=== PATIENT | female | born 1945 | race Caucasian/White ===

== ENCOUNTER → 2017-02-13 | Outpatient (CLI) | payer OTHER ==
[~2017-02-13] MED LIST: ESCI1TAB10 PO; METO50TA7 PO; RANI150T3 PO; RIVA1TAB4 PO; SIMV40TA2 PO
[2017-02-13 14:06] LABS: CHOLESTEROL/HDL RATIO 1.8
== END | disposition home or self-care (01) ==
LOC: C.LABMFLN 08:45
PROVIDERS: ATTEND Internal Medicine Cardiovascular Disease
DX: E78.00 Pure hypercholesterolemia, unspecified (principal); I10 Essential (primary) hypertension

== ENCOUNTER 2017-02-27 09:11 | Emergency (ER) | payer OTHER ==
[~2017-02-27] VITALS: Ht 157.5 cm; Wt 69.4 kg
[2017-02-27 09:13] VITALS: TEMP 36.7; Ht 157.5 cm; Wt 69.4 kg
[2017-02-27] MEDS ORDERED: METOPROLOL TARTRATE 50 MG TAB PO STA (09:21)
[2017-02-27 09:29] VITALS: O2SAT 96
[2017-02-27] MEDS ORDERED: LISINOPRIL 5 MG TAB PO ONE (09:30)
--- NOTE | 2017-02-27 09:31 | EMERGENCY ROOM VISIT NOTE ---
History Report prepared by Monica: Yordan Doherty Under the Supervision of: Dr. Alvaro Rider D.O. First contact with patient: 09:17 Stated Complaint: CARDIAC ASSESSMENT History of Present Illness The patient is a 71 year old female who presents to the Emergency Room with complaints of intermittent chest pains that she has been experiencing over the past 3 nights. The patient states that the chest pain began this morning at 0300 and persisted until 0600 when she got out of bed. She notes that standing up seems to relieve her pain when it occurs, and it always onsets while she is laying down. She denies any shortness of breath. The patient notes that she was running with her dog yesterday, and did not experience any discomfort during this exertion. She does note one bout of nausea recently, but denies any vomiting episodes or abdominal pain. She also denies any extremity swelling. The patient visited with her primary care physician who suggested that she come to the emergency department for a cardiac evaluation. She has had a stress test in the past. She has a history of heart murmur and hypertension. She takes Metoprolol and Lisinopril daily, she did not take these medications yet this morning. 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 A total of 10 systems reviewed and were otherwise negative. Past Medical & Surgical Medical Problems: (1) Heart murmur (2) Hypertension Heart murmur Hypertension Family History Hypertension Social History Drug Use: none Marital Status: Housing Status: lives with significant other Current/Historical Medications Scheduled Escitalopram Oxalate (Lexapro), 20 MG PO DAILY Metoprolol Succ (Toprol Xl) (Toprol-Xl), 50 MG PO BID Ranitidine Hcl (Zantac), 150 MG PO BID Rivaroxaban (Xarelto), 20 MG PO DAILY Simvastatin (Zocor), 40 MG PO QPM Allergies Coded Allergies: No Known Allergies (Unverified , 02/27/17) Physical Exam Vital Signs Date Time Temp Pulse Resp B/P Pulse Ox O2 Delivery O2 Flow Rate FiO2 02/27/17 11:40 54 20 188/73 97 Room Air 02/27/17 10:47 56 24 214/66 96 Room Air 02/27/17 09:33 56 02/27/17 09:29 96 Room Air 02/27/17 09:13 96 Room Air 02/27/17 09:13 36.7 59 16 228/60 96 Room Air 02/27/17 09:13 96 Room Air Physical Exam GENERAL: Patient is awake, alert, and in no acute distress. Patient is resting comfortably and showing no signs of anxiety EYES: The conjunctivae are clear. The pupils are round and reactive. EARS, NOSE, MOUTH AND THROAT: The nose is without any evidence of any deformity. Mucous membranes are moist tongue is midline NECK: The neck is nontender and supple. RESPIRATORY: Normal respiratory effort is noted there is no evidence of wheezing rhonchi or rales CARDIOVASCULAR: Systolic Murmur noted to auscultation. Regular rate and rhythm noted there no rubs or gallops normal S1 normal S2 GASTROINTESTINAL: The abdomen is soft. Bowel sounds are present in all quadrants. Abdomen is nontender MUSCULOSKELETAL/EXTREMITIES: There is no evidence of gross deformity full range of motion is noted in the hips and shoulders SKIN: There is no obvious evidence of any rash. There are no petechiae, pallor or cyanosis noted. NEUROLOGIC: Patient is awake alert and oriented x3 Medical Decision & Procedures ER Provider Diagnostic Interpretation: Radiology results as stated below per my review and radiologist interpretation: CHEST ONE VIEW PORTABLE HISTORY: Atypical CHEST PAIN COMPARISON: None. FINDINGS: The lungs are clear. Cardiac silhouette is borderline enlarged. No pleural effusions. No pneumothorax. IMPRESSION: Borderline cardiomegaly. Otherwise, no acute process within the chest. Electronically signed by: Geovani Meier M.D. 02/27/2017 9:42 AM Dictated Date/Time: 02/27/2017 9:40 AM Laboratory Results 02/27/17 09:10 Red Blood Count 4.11, Mean Corpuscular Volume 96.8, Mean Corpuscular Hemoglobin 31.4, Mean Corpuscular Hemoglobin Concent 32.4, Mean Platelet Volume 11.4, Neutrophils (%) (Auto) 79.0, Lymphocytes (%) (Auto) 11.6, Monocytes (%) (Auto) 7.5, Eosinophils (%) (Auto) 1.7, Basophils (%) (Auto) 0.1, Neutrophils # (Auto) 8.06, Lymphocytes # (Auto) 1.18, Monocytes # (Auto) 0.76, Eosinophils # (Auto) 0.17, Basophils # (Auto) 0.01 02/27/17 09:10 Test 02/27/17 09:10 02/27/17 09:32 02/27/17 10:35 White Blood Count 10.19 K/uL (4.8-10.8) Red Blood Count 4.11 M/uL (4.2-5.4) Hemoglobin 12.9 g/dL (12.0-16.0) Hematocrit 39.8 % (37-47) Mean Corpuscular Volume 96.8 fL (80-100) Mean Corpuscular Hemoglobin 31.4 pg (25-34) Mean Corpuscular Hemoglobin Concent 32.4 g/dl (32-36) Platelet Count 249 K/uL (130-400) Mean Platelet Volume 11.4 fL (7.4-10.4) Neutrophils (%) (Auto) 79.0 % Lymphocytes (%) (Auto) 11.6 % Monocytes (%) (Auto) 7.5 % Eosinophils (%) (Auto) 1.7 % Basophils (%) (Auto) 0.1 % Neutrophils # (Auto) 8.06 K/uL (1.4-6.5) Lymphocytes # (Auto) 1.18 K/uL (1.2-3.4) Monocytes # (Auto) 0.76 K/uL (0.11-0.59) Eosinophils # (Auto) 0.17 K/uL (0-0.5) Basophils # (Auto) 0.01 K/uL (0-0.2) RDW Standard Deviation 46.7 fL (36.4-46.3) RDW Coefficient of Variation 13.2 % (11.5-14.5) Immature Granulocyte % (Auto) 0.1 % Immature Granulocyte # (Auto) 0.01 K/uL (0.00-0.02) Anion Gap 8.0 mmol/L (3-11) Est Creatinine Clear Calc Drug Dose 66.4 ml/min Estimated GFR () 98.3 Estimated GFR (Non- 84.9 BUN/Creatinine Ratio 19.2 (10-20) Calcium Level 9.3 mg/dl (8.5-10.1) Total Bilirubin 0.7 mg/dl (0.2-1) Direct Bilirubin mg/dl (0-0.2) Aspartate Amino Transf (AST/SGOT) 23 U/L (15-37) Alanine Aminotransferase (ALT/SGPT) 21 U/L (12-78) Alkaline Phosphatase 71 U/L (45-117) Total Creatine Kinase 115 U/L (26-192) Creatine Kinase MB 1.2 ng/ml (0.5-3.6) Creatine Kinase MB Ratio 1.0 (0-3.0) Total Protein 7.7 gm/dl (6.4-8.2) Albumin 4.1 gm/dl (3.4-5.0) Lipase 128 U/L (73-393) Bedside Troponin I 0.020 ng/ml (0-0.045) Prothrombin Time 11.0 SECONDS (9.0-12.0) Prothromb Time International Ratio 1.0 (0.9-1.1) Activated Partial Thromboplast Time 30.3 SECONDS (21.0-31.0) Partial Thromboplastin Ratio 1.2 Laboratory results per my review. Medications Administered Medications (Trade) Dose Ordered Sig/Kayla Route Start Time Stop Time Status Last Admin Dose Admin Metoprolol Tartrate (Lopressor Tab) 50 mg NOW STAT PO 02/27/17 09:21 02/27/17 09:23 DC 02/27/17 09:43 50 MG Lisinopril (Zestril Tab) 5 mg NOW ONCE PO 02/27/17 09:30 02/27/17 09:31 DC 02/27/17 09:42 5 MG ECG Indication: chest pain Rate (beats per minute): 54 Rhythm: sinus bradycardia Findings: no acute ischemic change, no ectopy, other (LVH noted by voltage criteria) ED Course 0919: The patient was evaluated in room B2. A complete history and physical examination were performed. 09: Ordered Lopressor 50 mg PO. 30: Ordered Lisinopril 5 mg PO. 1049: I checked on the patient at this time, she was resting in bed. 1120: I placed a page for Dr. Orozco at this time. 1136: I discussed the case with Dr. Orozco - Cardiology at this time. He suggests that the patient is safe to be discharged home. 1140: Upon reevaluation, the patient is resting comfortably. I discussed the results and treatment plan with her. She verbalized agreement of the treatment plan. The patient was discharged home. Medical Decision Differential diagnosis: Etiologies such as cardiac ischemia, aortic dissection, pulmonary embolism, pneumonia, pneumothorax, musculoskeletal, infections, pericarditis, myocarditis , esophageal rupture, gastrointestinal, as well as others were entertained. Nursing notes reviewed. The patient is a 71-year-old female who presented to the emergency department for an evaluation of chest discomfort. 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 The patient does have some EKG abnormalities which I think her treatable to her valvular heart disease. I discussed the patient's laboratory and radiographic studies with her. I also discussed the limitations of the emergency department workup for chest pain with her. I discussed her presentation with her primary cnc programmer. I encouraged the patient to rest and avoid any strenuous activity. I encouraged her to continue all medications as prescribed. I also encouraged her to rest and avoid any strenuous activities until she was cleared again by her primary care physician. Otherwise she was encouraged to return to the emergency department immediately if symptoms change worsen or the need arises. Consults Time Called: 1120 Consulting Physician: Dr. Ernesto Urias Returned Call: [phone] I discussed the case with Dr. Ernesto Urias at this time. He suggests that the patient is safe to be discharged home. Impression Primary Impression: Chest pain Additional Impression: Abnormal EKG Scribe Attestation The scribe's documentation has been prepared under my direction and personally reviewed by me in its entirety. I confirm that the note above accurately reflects all work, treatment, procedures, and medical decision making performed by me. Departure Information Dispostion Home / Self-Care Prescriptions Ranitidine Hcl (ZANTAC) 150 Mg Tab 150 MG PO BID, #60 TAB Prov: Alvaro Rider, 02/27/17 Referrals No Doctor, Assigned (PCP) Forms IMPORTANT VISIT INFORMATION Patient Instructions My [facility] Additional Instructions Continue all medications as prescribed. Avoid any strenuous activity. Follow-up with your primary care physician as well as her cnc programmer as soon as possible. Return to the emergency department immediately if symptoms change worsen or the need arises. I would recommend starting an [id number] medication for stomach acid such as Prilosec. Avoid any spicy fatty or fried foods. Problem Qualifiers
[2017-02-27 09:39] LABS: BASO % 0.1 %; BASO ABS # 0.01 K/uL (0-0.2); COMPLETE YES; EOS % 1.7 %; HEMATOCRIT 39.8 % (37-47); IG% 0.1 %; LYMPH % 11.6 %; LYMPH ABS # 1.18 K/uL (1.2-3.4); MEAN CELL VOLUME 96.8 fL (80-100); MEAN CORPUSCULAR HEMOGLOBIN 31.4 pg (25-34); MEAN CORPUSCULAR HGB CONC 32.4 g/dl (32-36); MEAN PLATELET VOLUME 11.4 fL (7.4-10.4); MONO % 7.5 %; PLATELET COUNT 249 K/uL (130-400); RED BLOOD COUNT 4.11 M/uL (4.2-5.4); WHITE BLOOD COUNT 10.19 K/uL (4.8-10.8)
[2017-02-27] MEDS ORDERED: SIMV40TA2 PO (09:43)
[2017-02-27] MEDS ORDERED: ESCI1TAB10 PO (09:43)
[2017-02-27] MEDS ORDERED: RIVA1TAB4 PO (09:43)
[2017-02-27] MEDS ORDERED: METO50TA7 PO (09:43)
--- NOTE | 2017-02-27 09:43 | DIAGNOSTIC IMAGING REPORT ---
CHEST ONE VIEW PORTABLE HISTORY: Atypical CHEST PAIN COMPARISON: None. FINDINGS: The lungs are clear. Cardiac silhouette is borderline enlarged. No pleural effusions. No pneumothorax. IMPRESSION: Borderline cardiomegaly. Otherwise, no acute process within the chest. Electronically signed by: Geovani Meier M.D. 02/27/2017 9:42 AM Dictated Date/Time: 02/27/2017 9:40 AM
[2017-02-27 10:20] LABS: ALKALINE PHOSPHATASE 71 U/L (45-117); ALT/SGPT 21 U/L (12-78); AST/SGOT 23 U/L (15-37); BLOOD UREA NITROGEN 14 mg/dl (7-18); BUN/CREATININE RATIO 19.2 (10-20); CALCIUM 9.3 mg/dl (8.5-10.1); CARBON DIOXIDE 27 mmol/L (21-32); CHLORIDE 105 mmol/L (98-107); CREATININE 0.72 mg/dl (0.60-1.20); GLUCOSE 108 mg/dl (70-99); SODIUM 140 mmol/L (136-145)
[2017-02-27 10:53] LABS: PARTIAL THROMBOPLASTIN RATIO 1.2
[2017-02-27 11:40] VITALS: BP 188/73; PULSE 54; O2SAT 97
[2017-02-27] MEDS ORDERED: RANI150T3 PO (11:51)
== END 2017-02-27 12:03 | disposition home or self-care (01) ==
LOC: EDBD 09:11 → C.EDB 09:12
DX: R07.9 Chest pain, unspecified (principal); R94.31 Abnormal electrocardiogram [ECG] [EKG]; I10 Essential (primary) hypertension; R11.0 Nausea

== ENCOUNTER → 2017-03-06 | Outpatient (CLI) | payer OTHER ==
--- NOTE | 2017-03-06 09:03 | DIAGNOSTIC IMAGING REPORT ---
BILIARY ULTRASOUND CLINICAL HISTORY: Epigastric pain and nausea. COMPARISON STUDY: No previous studies for comparison. FINDINGS: The pancreas appears normal as visualized. The liver appears sonographically normal. The gallbladder appears normal. There is no right-sided hydronephrosis. There is no ductal dilatation. The common bile duct measures 3 mm. IMPRESSION: Normal study Electronically signed by: Anoop Patton M.D. 03/06/2017 9:01 AM Dictated Date/Time: 03/06/2017 9:00 AM
== END | disposition home or self-care (01) ==
LOC: C.ULTR 08:19
PROVIDERS: ATTEND Nurse Practitioner Family
DX: R10.13 Epigastric pain (principal); R14.2 Eructation; R11.0 Nausea

== ENCOUNTER → 2018-01-17 | Outpatient (CLI) | payer OTHER ==
[~2018-01-17] MED LIST changes: -METO50TA7 PO; +METO50TA8 PO; -RANI150T3 PO
== END | disposition home or self-care (01) ==
LOC: C.LABMFLN 08:33
PROVIDERS: ATTEND Nurse Practitioner Family
DX: I10 Essential (primary) hypertension (principal); E78.00 Pure hypercholesterolemia, unspecified; I65.29 Occlusion and stenosis of unspecified carotid artery

== ENCOUNTER → 2018-01-29 | Outpatient (CLI) | payer OTHER | END | disposition home or self-care (01) | LOC: C.LABMFLN 08:43 | PROVIDERS: ATTEND Internal Medicine Cardiovascular Disease | DX: E78.00 Pure hypercholesterolemia, unspecified (principal) ==